=== PATIENT | female | born 1990 | race Caucasian/White ===

== ENCOUNTER 2018-04-28 06:22 | Emergency (ER) | payer BC ==
[~2018-04-28] VITALS: Ht 165.1 cm; Wt 104.5 kg
[2018-04-28 06:25] VITALS: TEMP 97.3
[2018-04-28] MEDS ORDERED: [UNRECOGNIZED DRUG - OTHER] (06:48)
[2018-04-28] MEDS ORDERED: PERIACTIN 4MG TA4 MG (06:48)
[2018-04-28 07:35] LABS: MUCOUS Present /lpf; PH 5 (5-8); URINE APPEARANCE Cloudy; URINE BACTERIA Occasional /hpf; URINE BILIRUBIN Negative (NEGATIVE); URINE BLOOD Negative (NEGATIVE); URINE COLOR Amber; URINE GLUCOSE Negative (NEGATIVE); URINE KETONE Negative (NEGATIVE); URINE LEUKOCYTE ESTERASE 1+ (NEGATIVE); URINE NITRATE Negative (NEGATIVE); URINE PROTEIN(semi-quant) Negative (NEGATIVE); URINE UROBILINOGEN Negative (NEGATIVE)
[2018-04-28 08:11] LABS: BASO # 0.1 (0.0-0.2); BASO % 0.6 % (0.0-2.0); EOS # 0.2 (0.0-0.7); GRAN # 5.1 (1.4-6.5); GRAN % 65.3 % (42.2-75.2); HEMATOCRIT 43.5 % (37.0-47.0); HEMOGLOBIN 14.5 g/dl (12.5-16.0); LYMPH # 2.1 (1.2-3.4); LYMPH % 26.5 % (20.0-51.0); MEAN CELL VOLUME 88 fl (80.0-100.0); MEAN CORPUSCULAR HEMOGLOBIN 29 pg (27.0-31.0); MEAN CORPUSCULAR HGB CONC 33 g/dl (33.0-37.0); MEAN PLATELET VOLUME 9.4 fl (7.4-10.4); MONO # 0.4 (0.1-0.6); MONO % 5.3 % (1.7-9.3); PLATELET COUNT 256 K/mm3 (130-400); RED BLOOD COUNT 4.96 M/mm3 (4.10-5.30); REDCELL DISTRIBUTION WIDTH-CV 12.8 % (11.5-14.5)
[2018-04-28 08:14] LABS: COLLECTION METHOD CLEAN CATCH
[2018-04-28 08:24] LABS: ALBUMIN 3.9 gm/dL (3.5-5.0); BILIRUBIN,TOTAL 0.1 mg/dL (0.0-1.0); CALCIUM 9.8 mg/dL (8.4-10.2); CREATININE, serum 0.65 mg/dL (0.52-1.25); POTASSIUM 3.8 mmol/L (3.4-5.0); TOTAL PROTEIN 7.2 gm/dL (6.4-8.2)
[2018-04-28 10:30] VITALS: BP 133/91; PULSE 83
== END 2018-04-28 10:45 | disposition home or self-care (01) ==
LOC: COL.ER 06:22
PROVIDERS: Emergency Medicine
DX: R51 Headache (principal); R29.810 Facial weakness; R47.81 Slurred speech; R20.2 Paresthesia of skin; Z90.49 Acquired absence of other specified parts of digestive tract; Z86.69 Personal history of other diseases of the nervous system and sense organs
CPT/HCPCS: A9585; J1200; J2765; J7030

== ENCOUNTER 2020-10-23 09:27 | Outpatient (CLI) | payer BC ==
[~2020-10-23] VITALS: Ht 165.1 cm; Wt 109.1 kg
[~2020-10-23 09:27] MED LIST: PERIACTIN 4MG TA4 MG; [UNRECOGNIZED DRUG - OTHER]
--- NOTE | 2020-10-23 09:35 | NUR ---
Pt arrives on unit ambulatory. G1L0 at 22.6 weeks gestation. Pt states cramping that began at 1300 on 10/22/20. Pain is present in the lower abdominal area and increases with forward flexion. Adequate hydration has been maintained per pt report. Denies pain interventions for relief, UTI s/s, vaginal bleeding, and LOF. Reports GFM. Admission assessment completed. Difficulty tracing FHR due to maternal habitus and gestational age. [facility] RN remains at bedside for FHR. FHR noted in the 145-155s. MHR noted in the 90-100s. First BP elevated. Plan to recheck. CBC, CMP, UA and SVE orders per Dr. Pisano. SVE per this RN closed, thick, high. No fluid or vaginal bleeding noted on glove. Pt updated on POC. Bed locked in low position. Call light within reach. Pt given ice water. No questions or concerns at this time.
[2020-10-23 09:57] VITALS: BP 123/74; PULSE 100; TEMP 98
[2020-10-23 10:00] LABS: COLLECTION METHOD CLEAN CATCH
[2020-10-23] MEDS ORDERED: PRENATAL (10:04)
[2020-10-23] MEDS ORDERED: NATURAL MAGNES200 MG (10:05)
[2020-10-23] MEDS ORDERED: FISH OIL 1000MG1 CAP PO (10:05)
[2020-10-23 10:06] LABS: MUCOUS Present /lpf; PH 7 (5-8); SQUAMOUS EPITHELIAL 0-2 /hpf; URINE APPEARANCE Hazy; URINE BACTERIA Rare /hpf; URINE BILIRUBIN Negative (NEGATIVE); URINE BLOOD Negative (NEGATIVE); URINE COLOR Yellow; URINE GLUCOSE Negative (NEGATIVE); URINE KETONE Negative (NEGATIVE); URINE LEUKOCYTE ESTERASE 1+ (NEGATIVE); URINE NITRATE Negative (NEGATIVE); URINE PROTEIN(semi-quant) Negative (NEGATIVE); URINE RBC 0-2 /hpf; URINE UROBILINOGEN Negative (NEGATIVE)
[2020-10-23] MEDS ORDERED: VITAMIN B-2 100MG (10:06)
[2020-10-23 10:09] LABS: BASO % 0.2 % (0.0-2.0); EOS # 0.2 (0.0-0.7); EOS % 1.6 % (0-4.0); GRAN # 11.1 (1.4-6.5); GRAN % 78.9 % (42.2-75.2); HEMATOCRIT 39.8 % (37.0-47.0); HEMOGLOBIN 13.3 g/dl (12.5-16.0); LYMPH # 1.8 (1.2-3.4); LYMPH % 12.7 % (20.0-51.0); MEAN CELL VOLUME 90 fl (80.0-100.0); MEAN CORPUSCULAR HEMOGLOBIN 30 pg (27.0-31.0); MEAN CORPUSCULAR HGB CONC 33 g/dl (33.0-37.0); MEAN PLATELET VOLUME 9.5 fl (7.4-10.4); MONO # 0.8 (0.1-0.6); MONO % 5.7 % (1.7-9.3); PLATELET COUNT 202 K/mm3 (130-400); RED BLOOD COUNT 4.41 M/mm3 (4.10-5.30); REDCELL DISTRIBUTION WIDTH-CV 14.3 % (11.5-14.5)
[2020-10-23 10:21] LABS: ALANINE AMINOTRANSFERASE 16 U/L (4-34); ALBUMIN 3.6 gm/dL (3.5-5.0); ALKALINE PHOSPHATASE 73 U/L (50-136); ANION GAP 7 mmol/L (7-16); AST,SGOT 18 U/L (15-37); BILIRUBIN,TOTAL < 0.1 mg/dL (0.0-1.0); BLOOD UREA NITROGEN 7 mg/dL (7-17); CARBON DIOXIDE 19 mmol/L (22-30); CHLORIDE 107 mmol/L (98-107); CREATININE, serum 0.46 (0.52-1.25); GLUCOSE 109 mg/dL (74-106); POTASSIUM 3.8 mmol/L (3.4-5.0); SODIUM 133 mmol/L (137-145); TOTAL PROTEIN 6.7 gm/dL (6.4-8.2)
== END 2020-10-23 10:30 | disposition home or self-care (01) ==
LOC: LDRO 09:27 → LDR 09:34 → LDRO 10:30
PROVIDERS: Obstetrics & Gynecology
DX: Z34.92 Encounter for supervision of normal pregnancy, unspecified, second trimester (principal); Z3A.22 22 weeks gestation of pregnancy
CPT/HCPCS: OP

== ENCOUNTER 2021-01-15 09:33 | Outpatient (CLI) | payer BC ==
[~2021-01-15] VITALS: Ht 165.1 cm; Wt 129.1 kg
[~2021-01-15 09:33] MED LIST changes: +FISH OIL 1000MG1 CAP PO; +NATURAL MAGNES200 MG; +PRENATAL; +VITAMIN B-2 100MG
--- NOTE | 2021-01-15 09:45 | NUR ---
Pt arrived on unit with concern for UTI with burning with urination, frequency and urgency. Pt denies any contractions, leaking of fluid or vaginal bleeding and reports normal movement. EFM and toco monitors started. Vital signs WNL except elevated HR. SPO2 monitor started.
[2021-01-15] MEDS ORDERED: VITAMINC500CH (09:57)
[2021-01-15 10:00] VITALS: BP 128/75; PULSE 126; TEMP 98
--- NOTE | 2021-01-15 10:00 | NUR ---
Dr. Jennings on the unit. FHR tracing, pt's complaints and vitals reviewed. Outpatient and UA orders received. Plan of care reviewed with pt.
[2021-01-15 10:31] LABS: COLLECTION METHOD CLEAN CATCH
[2021-01-15 10:42] LABS: AMORPHOUS CRYSTAL Present (NOT PRESENT); MUCOUS Present (NOT PRESENT); PH 6 (5-8); URINE APPEARANCE Cloudy (CLEAR/HAZY); URINE BACTERIA Many (NONE SEEN); URINE BILIRUBIN Negative (NEGATIVE); URINE BLOOD 1+ (NEGATIVE); URINE COLOR Yellow (YELLOW); URINE GLUCOSE Negative (NEGATIVE); URINE KETONE Negative (NEGATIVE); URINE LEUKOCYTE ESTERASE 3+ (NEGATIVE); URINE NITRATE Negative (NEGATIVE); URINE PROTEIN(semi-quant) Negative (NEGATIVE); URINE UROBILINOGEN Negative (NEGATIVE); URINE WBC 20-50 /hpf (0-2)
--- NOTE | 2021-01-15 10:45 | NUR ---
Dr. Jennings on the unit. Lab results reviewed. Orders for outpatient antibiotics and discharge received. Plan of care reviewed with pt. Pt verbalized an understanding, agreed with the plan and states no questions or concerns at this time.
[2021-01-15] MEDS ORDERED: MACROBID 1100 MG/CAP PO (10:46)
[2021-01-15 10:48] VITALS: BP 129/87; PULSE 105
== END 2021-01-15 11:00 | disposition home or self-care (01) ==
LOC: LDRO 09:33 → LDR 10:19 → LDRO 11:00
PROVIDERS: Obstetrics & Gynecology
DX: Z34.93 Encounter for supervision of normal pregnancy, unspecified, third trimester (principal); Z3A.34 34 weeks gestation of pregnancy
CPT/HCPCS: OP